=== PATIENT | female | born 1960 | race Caucasian/White ===

== ENCOUNTER → 2016-10-12 | Outpatient (CLI) | payer BC, OTHER ==
--- NOTE | 2016-10-13 10:05 | MM ---
Reason for exam: screening (asymptomatic). Last mammogram was performed 1 year ago. History: Patient is postmenopausal. Took hormonal contraceptives for 20 years beginning at age 21. Taking estrogen for 17 years beginning at age 37. Taking progesterone for 17 years beginning at age 37. Physical Findings: A clinical breast exam by your physician is recommended on an annual basis and results should be correlated with mammographic findings. MG Screening Mammo w CAD Bilateral CC and MLO view(s) were taken. Prior study comparison: October 05, 2015, bilateral MG 3d diag mammo w/cad [facility]. April 06, 2015, bilateral MG diagnostic mammo w CAD [facility]. The breast tissue is heterogeneously dense. This may lower the sensitivity of mammography. Focal asymmetry upper outer right breast. This finding is changed when compared with previous exams. ASSESSMENT: Incomplete: need additional imaging evaluation, BI-RAD 0 RECOMMENDATION: Special view mammogram of the right breast. If lesion persists on supplemental views, image directed ultrasound is recommended. [facility] will attempt to contact patient to return for supplemental views and ultrasound if indicated.
== END | disposition home or self-care (01) ==
LOC: RADMAMWWP 06:58
PROVIDERS: ATTEND Obstetrics & Gynecology
DX: Z12.31 Encounter for screening mammogram for malignant neoplasm of breast (principal)

== ENCOUNTER → 2016-10-18 | Outpatient (CLI) | payer BC, OTHER ==
--- NOTE | 2016-10-18 08:00 | MM ---
Reason for exam: additional evaluation requested from abnormal screening. Last mammogram was performed less than 1 month ago. History: Patient is postmenopausal. Took hormonal contraceptives for 20 years beginning at age 21. Taking estrogen for 17 years beginning at age 37. Taking progesterone for 17 years beginning at age 37. Physical Findings: Nurse did not find any significant physical abnormalities on exam. MG Work Up Mamm w CAD RT LM, spot compression MLO, and spot compression CC view(s) were taken of the right breast. Prior study comparison: October 12, 2016, bilateral MG screening mammo w CAD. October 05, 2015, bilateral MG 3d diag mammo w/cad [facility]. April 06, 2015, bilateral MG diagnostic mammo w CAD [facility]. June 26, 2013, bilateral digital screening mammo w/CAD. The breast tissue is heterogeneously dense. This may lower the sensitivity of mammography. The questioned upper outer quadrant focal asymmetry does not persist compatible with summation shadow. These results were verbally communicated with the patient and result sheet given to the patient on 10/18/16. ASSESSMENT: Negative, BI-RAD 1 RECOMMENDATION: Return to routine screening mammogram schedule for both breasts.
== END | disposition home or self-care (01) ==
LOC: RADMAMWWP 06:59
PROVIDERS: ATTEND Obstetrics & Gynecology
DX: R92.8 Other abnormal and inconclusive findings on diagnostic imaging of breast (principal)

== ENCOUNTER → 2018-01-22 | Outpatient (CLI) | payer BC, OTHER ==
--- NOTE | 2018-01-24 11:22 | MM ---
Reason for exam: screening (asymptomatic). Last mammogram was performed 1 year and 3 months ago. History: Patient is postmenopausal. Took hormonal contraceptives for 20 years beginning at age 21. Taking estrogen for 17 years beginning at age 37. Taking progesterone for 17 years beginning at age 37. Physical Findings: A clinical breast exam by your physician is recommended on an annual basis and results should be correlated with mammographic findings. MG 3D Screening Mammo W/Cad Bilateral CC and MLO view(s) were taken. Prior study comparison: October 18, 2016, right breast MG work up mamm w CAD RT. October 12, 2016, bilateral MG screening mammo w CAD. The breast tissue is heterogeneously dense. This may lower the sensitivity of mammography. No significant changes when compared with prior studies. ASSESSMENT: Negative, BI-RAD 1 RECOMMENDATION: Routine screening mammogram of both breasts in 1 year.
== END | disposition home or self-care (01) ==
LOC: RADMAMWWP 15:21
PROVIDERS: ATTEND Obstetrics & Gynecology
DX: Z12.31 Encounter for screening mammogram for malignant neoplasm of breast (principal)
CPT/HCPCS: 77063; 77067

== ENCOUNTER → 2018-03-01 | Outpatient (CLI) | payer BC, OTHER ==
--- NOTE | 2018-03-01 08:16 | US ---
EXAMINATION TYPE: US abdomen complete DATE OF EXAM: 03/01/2018 COMPARISON: NONE CLINICAL HISTORY: R10.84 generalized abdominal pain. Patient states having discomfort about 30 minute s after eating. NPO. EXAM MEASUREMENTS: Liver Length: 14.1 cm Gallbladder Wall: 0.1 cm CBD: cm CHD: Spleen: 9.7 cm Right Kidney: 10.0 x 4.8 x 4.2 cm Left Kidney: 10.3 x 4.8 x 5.3 cm Pancreas: wnl Liver: wnl Gallbladder: wnl. fold seen LLD Evidence for sonographic Alan's sign: Neg CBD: wnl CHD: wnl Spleen: wnl Right Kidney: wnl Left Kidney: wnl Upper IVC: wnl Abd Aorta: wnl IMPRESSION: 1. Normal abdomen ultrasound.
== END | disposition home or self-care (01) ==
LOC: RADUSWWP 07:35
PROVIDERS: ATTEND Family Medicine
DX: R10.84 Generalized abdominal pain (principal)
CPT/HCPCS: 76700

== ENCOUNTER → 2018-03-19 | Outpatient (CLI) | payer BC, OTHER ==
--- NOTE | 2018-03-19 11:41 | NM ---
EXAMINATION TYPE: NM hepatobiliary w EF DATE OF EXAM: 03/19/2018 COMPARISON: Ultrasound abdomen 03/01/2018 HISTORY: Right upper quadrant pain TECHNIQUE: After the intravenous administration of 5.3 mCi Tc 99m Mebrofenin hepatobiliary scintigrap hy is performed. Immediate images post injection. FINDINGS: There is satisfactory initial accumulation of tracer by the liver. The gallbladder is visualized wit hin 6 minutes. The small bowel activity is noted within 4 minutes. At one hour 8 ounces of oral ens ure plus is given to mimic CCK and gallbladder ejection fraction is calculated at 36 %, borderline no rmal range. Therefore there is no scintigraphic evidence of cystic or common bile duct obstruction t o suggest acute cholecystitis. IMPRESSION: Borderline normal gallbladder ejection fraction.
== END | disposition home or self-care (01) ==
LOC: RADNMMAIN 06:55
PROVIDERS: ATTEND Family Medicine
DX: R10.11 Right upper quadrant pain (principal); R14.0 Abdominal distension (gaseous)
CPT/HCPCS: 78226; A9537

== ENCOUNTER → 2019-09-12 | Outpatient (CLI) | payer BC ==
--- NOTE | 2019-09-15 13:13 | MM ---
Reason for exam: screening (asymptomatic). Last mammogram was performed 1 year and 8 months ago. History: Patient is postmenopausal. Took hormonal contraceptives for 20 years beginning at age 21. Taking estrogen for 17 years beginning at age 37. Taking progesterone for 17 years beginning at age 37. Physical Findings: A clinical breast exam by your physician is recommended on an annual basis and results should be correlated with mammographic findings. MG 3D Screening Mammo W/Cad Bilateral CC and MLO view(s) were taken. XCCL view(s) were taken of the left breast. Prior study comparison: January 22, 2018, bilateral MG 3d screening mammo w/cad. October 18, 2016, right breast MG work up mamm w CAD RT. The breast tissue is heterogeneously dense. This may lower the sensitivity of mammography. No suspicious abnormality. No significant changes when compared with prior studies. ASSESSMENT: Negative, BI-RAD 1 RECOMMENDATION: Routine screening mammogram of both breasts in 1 year.
== END ==
LOC: RADMAMWWP 06:55
PROVIDERS: ATTEND Obstetrics & Gynecology
DX: Z12.31 Encounter for screening mammogram for malignant neoplasm of breast (principal)
CPT/HCPCS: 77063; 77067

== ENCOUNTER → 2020-11-09 | Outpatient (CLI) | payer BC ==
--- NOTE | 2020-11-09 17:50 | BD ---
EXAMINATION TYPE: Axial Bone Density DATE OF EXAM: 11/09/2020 COMPARISON: NONE CLINICAL HISTORY: Height: 5 FT 3 1/2 IN Weight: 154 FRAX RISK QUESTIONS: Alcohol (3 or more units per day): NO Family History (Parent hip fracture): NO Glucocorticoids (More than 3mos): NO (Ex: prednisone, prednisolone, methylprednisolone, dexamethasone, and hydrocortisone). History of Fracture in Adulthood: NO Secondary Osteoporosis: 1. Type 1 Diabetes: NO 2. Hyperthyroidism: NO 3. Menopause before 45: AGE 37 4. Malnutrition: NO 5. Chronic liver disease: NO Rheumatoid Arthritis: NO Current Tobacco Use: NO RISK FACTORS HISTORY OF: Family History of Osteoporosis: NO Active: YES Diet low in dairy products/other sources of calcium: NO Postmenopausal woman: AGE 37 NATURALLY Take estrogen and/or progesterone medications: PREMPRO How long: SINCE AGE 37 Lost more than 2 inches in height since high school: NO MEDICATIONS: Thyroid Medications: YES Which medication: LEVOXYL How Long: SINCE AGE 42 Additional Medications: HRT ,LEVOXYL, ATORVASTATIN, CLONAZEPAM,SERTRALINE Additional History: [facility] CARPAL TUNNEL SURG APPROX 12 YEARS AGO EXAM MEASUREMENTS: Bone mineral densitometry was performed using the [employer] System. Bone mineral density as measured about the Lumbar spine is: ----- L1-L4(G/cm2): 1.277 T Score Values are as follows: ----- L2: 0.7 ----- L3: 0.7 ----- L4: 1.3 ----- L1-L4: 0.8 Bone mineral density has: INCREASED 4.7 % since study of: 2015 Bone mineral density about the R hip (g/cm2): 0.978 Bone mineral density about the L hip (g/cm2): 0.980 T Score values are as follows: -----R Neck: -0.4 -----L Neck: -0.4 -----R Total: -0.1 -----L Total: 0.3 Bone mineral density has: INCREASED 2.6 % since study of: 2015 IMPRESSION: Normal (Values between +1 and -1 indicate normal bone mass). Consider repeating this study in 5 year s or sooner if there is some new clinical indication. NOTE: T-SCORE=SD OF THE YOUNG ADULT MEAN.
--- NOTE | 2020-11-11 10:46 | MM ---
Reason for exam: screening (asymptomatic). Last mammogram was performed 1 year and 2 months ago. History: Patient is postmenopausal. Took hormonal contraceptives for 20 years beginning at age 21. Taking estrogen for 17 years beginning at age 37. Taking progesterone for 17 years beginning at age 37. Physical Findings: A clinical breast exam by your physician is recommended on an annual basis and results should be correlated with mammographic findings. MG 3D Screening Mammo W/Cad Bilateral CC and MLO view(s) were taken. Prior study comparison: September 12, 2019, bilateral MG 3d screening mammo w/cad. January 22, 2018, bilateral MG 3d screening mammo w/cad. The breast tissue is heterogeneously dense. This may lower the sensitivity of mammography. There is chronic nodularity in the left breast. No significant changes when compared with prior studies. ASSESSMENT: Benign, BI-RAD 2 RECOMMENDATION: Routine screening mammogram of both breasts in 1 year.
== END ==
LOC: RADMAMWWP 15:34
PROVIDERS: ATTEND Obstetrics & Gynecology
DX: Z12.31 Encounter for screening mammogram for malignant neoplasm of breast (principal); Z78.0 Asymptomatic menopausal state
CPT/HCPCS: 77063; 77067; 77080

== ENCOUNTER → 2022-02-23 | Outpatient (CLI) | payer BC ==
--- NOTE | 2022-02-25 13:10 | MM ---
Reason for Exam: Screening (asymptomatic). Last mammogram was performed 1 year(s) and 3 month(s) ago. Patient History: Menarche at age 14. First Full-Term at age 30. Postmenopausal. Estrogen, starting at age 37 for 17 years. Progesterone, starting at age 37 for 17 years. Hormonal Contraceptives, starting at age 21 for 20 years. Risk Values: Ann 5 year model risk: 1.6%. NCI Lifetime model risk: 8.1%. Prior Study Comparison: 01/22/2018 Bilateral Screening Mammogram, [facility]. 09/12/2019 Bilateral Screening Mammogram, [facility]. 11/09/2020 Bilateral Screening Mammogram, [facility]. Tissue Density: The breast tissue is heterogeneously dense. This may lower the sensitivity of mammography. Findings: Analyzed By CAD. There is no suspicious group of microcalcifications or new suspicious mass in either breast. Overall Assessment: Negative, BI-RAD 1 Management: Screening Mammogram of both breasts in 1 year. 1. Patient should continue monthly self breast exams. 2. A clinical breast exam by your physician is recommended on an annual basis and results should be correlated with mammographic findings. A negative mammogram should not preclude additional follow-up of suspicious palpable abnormalities. Electronically signed and approved by: Blanca See M.D. Radiologist
== END | disposition home or self-care (01) ==
LOC: RADMAMWWP 16:31
PROVIDERS: ATTEND Obstetrics & Gynecology
DX: Z12.31 Encounter for screening mammogram for malignant neoplasm of breast (principal); Z78.0 Asymptomatic menopausal state
CPT/HCPCS: 77063; 77067

== ENCOUNTER 2022-08-04 06:46 | Day surgery (SDC) | payer BC ==
[2022-07-31 13:06] VITALS: BMI 25.7
[~2022-08-04 06:46] MED LIST: DEXAMETHASONE SOD PHOSPHATE 4 MG/ML 1 ML VIAL IV ONE; HYDROmorphone 0.5 MG/0.5 ML SYRINGE IVP PRN; LACTATED RINGERS 1,000 ML IV SCH; ONDANSETRON 4 MG/2 ML VIAL IVP ONE
[2022-08-04 07:15] VITALS: RESP 16
[2022-08-04] MEDS ORDERED: LIDOCAINE 1% (10MG/ML) FOR IV START INTRADERMA ONE (07:35)
[2022-08-04] MEDS ORDERED: MIDAZOLAM 2 MG/2 ML VIAL IV ONE (07:55)
[2022-08-04] MEDS ORDERED: PROPOFOL 10 MG/ML 20 ML VIAL IV ONE (08:57)
[2022-08-04] MEDS ORDERED: ceFAZolin 1,000 MG in SODIUM CHLORIDE 0.9% 1,000 ML IRRIGATION ONE (08:57)
[2022-08-04] MEDS ORDERED: DEXAMETHASONE SOD PHOSPHATE 10 MG/ML 1 ML VIAL ONE (08:57)
[2022-08-04] MEDS ORDERED: ROPIVACAINE 5 MG/ML 30 ML VIAL ONE (08:57)
[2022-08-04] MEDS ORDERED: MIDAZOLAM 2 MG/2 ML VIAL ONE (08:57)
[2022-08-04] MEDS ORDERED: fentaNYL (PF) 50 MCG/ML 2 ML AMP ONE (08:57)
[2022-08-04] MEDS ORDERED: NEOSTIGMINE 1 MG/ML 10 ML VIAL ONE (08:57)
[2022-08-04] MEDS ORDERED: ROCURONIUM 10 MG/ML (5 ML VIAL) IV ONE (08:57)
[2022-08-04] MEDS ORDERED: SUCCINYLCHOLINE CHLORIDE 200 MG/10 ML VIAL IV ONE (08:57)
[2022-08-04] MEDS ORDERED: LIDOCAINE 2% INJ 20 MG/ML (2 ML VIAL) ONE (08:57)
[2022-08-04] MEDS ORDERED: GLYCOPYRROLATE 0.2 MG/ML 2 ML VIAL ONE (08:57)
[2022-08-04 10:26] VITALS: TEMP 98
--- NOTE | 2022-08-04 10:32 | P.OP ---
Date of Procedure: 08/04/22 Preoperative Diagnosis: 1. Achilles tendinitis right 2. Calcaneal spur right 3. Gastroc equinus right Postoperative Diagnosis: 1. Same 2. Same 3. Same Procedure(s) Performed: 1. Secondary repair right Achilles tendon 2. Gastroc recession right 3. Removal of calcaneal spur right Implants: Arthrex Achilles speedbridge system Anesthesia: GETA Surgeon: Roberto Torres Estimated Blood Loss (ml): 2 Pathology: none sent Condition: stable Disposition: PACU Description of Procedure: Prior to the patient being brought to the operating room, anesthesia administered nerve block on the surgical extremity. Once completed, the patient was taken into the operating room. Timeout was taken to confirm correct patient identifiers, correct laterality of surgery, and correct procedure. When all staff in the room were in agreement with the timeout, the patient was induced and placed under general anesthesia. The patient was then placed in the prone position on the operating room table. Appropriate padding was placed beneath the patient's face as well as in the thoracic area. Once anesthesia was satisfied with the patient positioning, a well-padded tourniquet was placed on the thigh. Then the leg was prepped and draped in the usual manner. The leg was exsanguinated and the tourniquet inflated to 250 mmHg. Attention was directed over the posterior aspect of the leg, where the gastroc recession was performed. A linear midline incision was made distal to the gastroc muscle belly. The incision was deepened down to the subcutaneous layer careful to identify, avoid, and retract any neurovascular structures and cauterize any bleeding vessels. Blunt dissection was carried down to level the deep fascia. The fascia was incised and then bluntly dissected off the gastroc aponeurosis. A transverse incision was made through the aponeurosis from medial to lateral. Once completed the ankle was dorsiflexed and a visible gap. And the aponeurosis, indicating a full release. The wound is thoroughly irrigated. The subcutaneous layer was closed with 4-0 Vicryl. And skin closure done with 3-0 Stratafix in a running subcuticular manner. Then attention was directed over the Achilles insertion. A curvilinear incision was made starting in the medial side of the Achilles tendon then curving posteriorly over the insertion point. The incision was deepened down to the subcutaneous layer, careful to identify, avoid, and retract any neurovascular structures and cauterize any bleeding vessels the skin and subcutaneous layers were dissected in a full-thickness fashion off the Achilles tendon. Incisions are made on the anterior aspect of the Achilles tendon, on the medial and lateral aspects, and extended down to the insertion. The Achilles insertion was then sharply removed off the posterior aspect of the calcaneus. There was a large calcific density in the body of the Achilles tendon superior to the insertion point. This is carefully dissected and removed. Any abnormal tissue in the Achilles tendon insertion was also sharply debrided. Once that was completed attention was directed to the posterior calcaneus where there was a large calcaneal spur. An osteotome was used to remove all the abnormal bony growth in the posterior calcaneus. This also allowed for exposure the bone to help facilitate the reattachment of the Achilles tendon. The area was thoroughly irrigated with sterile saline. The distal end of the Achilles tendon was then grasped and pulled distally while holding the ankle at 90. It was brought into contact at the calcaneus to brad the insertion point. A transverse line was made and marking the insertion point. Then gonzalez were made for the drill holes for the anchoring system. The holes were done medial and lateral and approximate 1 cm from the brad. A total 4 holes were made. All holes were then tapped. The anchors with the sutures attached to the more placed in the most superior holes. Anchors were advanced down to proper depth. With the Achilles tendon pulled distally to the attachment point line, suture was passed through the medial and lateral aspects of the tendon and pulled through. Then the [place] were cut and tension was placed on the suture down to the attachment point. Utilizing one suture from each anchor, the ends were pulled through the 4.75 swivel lock anchor which were then aligned with their corresponding drill holes. Utilizing proper tensioning techniques and keeping tension on the Achilles tendon to hold the near the insertion point, the anchor was inserted burying the suture within the calcaneus and locking in place. This was repeated for the opposite side. Once completed the ankle was taken through range of motion to test the integrity of the attachment point. It was found to be firmly attached to the posterior aspect of the calcaneus. All the extra suture was then cut flush with or anchors. Any thickened Achilles tendon was also sharply removed at this point. The area was thoroughly irrigated with sterile saline. The subcutaneous layer was closed with 4-0 Monocryl and skin closure done with jamie. Dermal glue and Steri-Strips are placed across the proximal incision. Both incisions were covered with an Arthrex jumpstart dressing. A dry bulky dressing was then applied to the leg. The tourniquet was released and capillary refill return to all digits on the foot. The patient was then placed in a well- padded, well molded plaster posterior mold/sugar tong splint. The ankle was held at 90 until the splint was fully dried. Then the patient was rolled back to the transfer table. Anesthesia was reversed and he was not medically extubated. The patient tolerated the above procedure and anesthesia well, and went to recovery with vital signs stable.
[2022-08-04 11:00] VITALS: PULSE 57
[2022-08-04 11:14] VITALS: BP 121/80
--- NOTE | 2022-08-04 11:28 | P.ANPRN ---
Procedure Note - Anesthesia - Nerve Block Performed Right Adductor Canal Infusion Time Out Performed: Yes Date of Procedure: 08/04/22 Procedure Start Time: 07:55 Procedure Stop Time: 07:59 Location of Patient: PreOp Indication: Acute Post-Operative Pain, Requested by Surgeon Sedation Type: Sedate with meaningful contact maintained Preparation: Sterile Prep Position: Left Lateral Needle Types: Pajunk Needle Gauge: 21 Ultrasound used to visualize needle placement: Yes Ultrasound used to observe medication spread: Yes Blood Aspirated: No Pain Paresthesia on Injection Noted: No Resistance on Injection: Normal Image Stored and Saved: Yes Events: Uneventful and Well Tolerated (ropi .5% 20ccplus dexamethasone 4mg)
--- NOTE | 2022-08-04 11:31 | P.ANPRN ---
Procedure Note - Anesthesia - Nerve Block Performed Right Popliteal Single Time Out Performed: Yes Date of Procedure: 08/04/22 Procedure Start Time: 08:00 Procedure Stop Time: 08:03 Location of Patient: PreOp Indication: Acute Post-Operative Pain, Requested by Surgeon Sedation Type: Sedate with meaningful contact maintained Preparation: Sterile Prep Position: Left Lateral Needle Types: Pajunk Needle Gauge: 21 Ultrasound used to visualize needle placement: Yes Ultrasound used to observe medication spread: Yes Blood Aspirated: No Pain Paresthesia on Injection Noted: No Resistance on Injection: Normal Image Stored and Saved: Yes Events: Uneventful and Well Tolerated (ropi .5% 20cc plus dexamehasone 4mg)
== END 2022-08-04 11:34 | disposition home or self-care (01) ==
LOC: OR 06:46
PROVIDERS: ATTEND Podiatrist
DX: M76.61 Achilles tendinitis, right leg (principal); M77.31 Calcaneal spur, right foot; E78.5 Hyperlipidemia, unspecified; F32.A Depression, unspecified; E03.9 Hypothyroidism, unspecified; Z82.49 Family history of ischemic heart disease and other diseases of the circulatory system; Z97.3 Presence of spectacles and contact lenses; Z83.3 Family history of diabetes mellitus; Z86.59 Personal history of other mental and behavioral disorders; Z79.899 Other long term (current) drug therapy
CPT/HCPCS: 64447; 64445; 76942; 27654; 27687; 28118; C1713; J2250; J0330; J1100 ×2; J2710; J0690 ×2; J2405; J3010; J2795; J2704; J2001

== ENCOUNTER → 2023-07-02 | Outpatient (CLI) | payer BC ==
--- NOTE | 2023-07-02 10:16 | MM ---
Reason for Exam: Screening (asymptomatic). Last mammogram was performed 1 year(s) and 4 month(s) ago. Patient History: Menarche at age 14. First Full-Term at age 30. Postmenopausal. Estrogen, starting at age 37 for 17 years. Progesterone, starting at age 37 for 17 years. Hormonal Contraceptives, starting at age 21 for 20 years. Risk Values: Ann 5 year model risk: 1.6%. NCI Lifetime model risk: 7.9%. Prior Study Comparison: 09/12/2019 Bilateral Screening Mammogram, [facility]. 11/09/2020 Bilateral Screening Mammogram, [facility]. 02/23/2022 Bilateral MG 3D screening mammo w/cad, [facility]. Tissue Density: There are scattered fibroglandular densities. Findings: Analyzed By CAD. There is no suspicious group of microcalcifications or new suspicious mass. Overall Assessment: Negative, BI-RAD 1 Management: Screening Mammogram of both breasts in [address] [facility] will attempt to contact patient to return for supplemental views and ultrasound if indicated. Patient should continue monthly self-breast exams. A clinical breast exam by your physician is recommended on an annual basis. This exam should not preclude additional follow-up of suspicious palpable abnormalities. Note on Ann scores and lifetime risk: 1. A Ann score greater than 3% is considered moderate risk. If this is the case, consider specialist referral to assess eligibility for a risk reducing agent. 2. If overall lifetime risk for the development of breast cancer is 20% or higher, the patient may qualify for future screening with alternating mammogram and breast MRI. Electronically signed and approved by: Jake Hernandes DO
== END | disposition home or self-care (01) ==
LOC: RADMAMWWP 07:11
PROVIDERS: ATTEND Obstetrics & Gynecology
DX: Z12.31 Encounter for screening mammogram for malignant neoplasm of breast (principal); Z78.0 Asymptomatic menopausal state
CPT/HCPCS: 77063; 77067

== ENCOUNTER → 2024-01-11 | Outpatient (CLI) | payer BC ==
[2024-01-11 10:33] LABS: ALT 16 U/L (8-44); AST 23 U/L (13-35); Albumin 4.2 g/dL (3.8-4.9); Albumin/Globulin Ratio 1.83 Ratio (1.60-3.17); Alkaline Phosphatase 109 U/L (41-126); BUN/Creat Ratio 25.75 Ratio (12.00-20.00); Blood Urea Nitrogen 20.6 mg/dL (9.0-27.0); Calcium 9.3 mg/dL (8.7-10.3); Carbon Dioxide 27.1 mmol/L (21.6-31.8); Chloride 103 mmol/L (96-109); Globulin 2.3 g/dL (1.6-3.3); Glucose 103 mg/dL (70-110); Potassium 4.1 mmol/L (3.5-5.5); Sodium 140 mmol/L (135-145); Total Bilirubin 0.3 mg/dL (0.3-1.2); Total Protein 6.5 g/dL (6.2-8.2)
== END | disposition home or self-care (01) ==
LOC: LABWHC1 07:05
PROVIDERS: ATTEND Family Medicine
DX: M54.42 Lumbago with sciatica, left side (principal); E03.4 Atrophy of thyroid (acquired); E78.2 Mixed hyperlipidemia; R73.03 Prediabetes; Z78.9 Other specified health status
CPT/HCPCS: 36415; 80053; 83036; 84443